=== PATIENT | female | born 1995 | race Caucasian/White ===

== ENCOUNTER → 2019-07-12 | Outpatient (REF) | payer BC ==
[2019-07-15 12:29] LABS: CHLAMYDIA DNA AMPLIFICATION NEGATIVE (NEGATIVE); GC DNA AMPLIFICATION NEGATIVE (NEGATIVE)
== END ==
LOC: M PLALAB 16:32
PROVIDERS: ATTEND Advanced Practice Midwife
DX: Z12.4 Encounter for screening for malignant neoplasm of cervix (principal); Z11.3 Encounter for screening for infections with a predominantly sexual mode of transmission
CPT/HCPCS: 87661; G0123

== ENCOUNTER → 2019-12-09 | Outpatient (REF) | payer BC | LOC: M LAB REF 17:31 | PROVIDERS: ATTEND Physician Assistant | DX: B37.3 Candidiasis of vulva and vagina (principal) ==

== ENCOUNTER → 2021-02-12 | Outpatient (REF) | LOC: M LABSMTC 09:36 | PROVIDERS: ATTEND Pediatrics | DX: Z11.52 Encounter for screening for COVID-19 (principal) ==

== ENCOUNTER → 2021-05-04 | Outpatient (CLI) | payer SELFPAY | LOC: M PLALAB 10:12 | PROVIDERS: ATTEND Advanced Practice Midwife | DX: O20.0 Threatened abortion (principal); Z3A.00 Weeks of gestation of pregnancy not specified ==

== ENCOUNTER → 2021-08-26 | Outpatient (CLI) | payer OTHER ==
[2021-08-26 15:37] LABS: HEMATOCRIT 37.9 % (36.0-47.0); HEMOGLOBIN 13.1 g/dl (12.0-15.5); MEAN CORPUSCULAR HGB CONC 34.6 g/dl (32.0-36.5); MEAN CORPUSCULAR VOLUME 89.6 fl (80.0-96.0); PLATELET COUNT, AUTOMATED 216 10^3/uL (150-450); RED BLOOD COUNT 4.23 10^6/uL (4.00-5.40); WHITE BLOOD COUNT 7.7 10^3/uL (4.0-10.0)
[2021-08-26 16:58] LABS: HIV 1&2 SCREEN CENTAUR NEGATIVE (NEGATIVE)
[2021-08-26 17:22] LABS: GC DNA AMPLIFICATION NEGATIVE (NEGATIVE)
== END ==
LOC: M PLALAB 13:54
PROVIDERS: ATTEND Advanced Practice Midwife
DX: I10 Essential (primary) hypertension (principal)

== ENCOUNTER 2021-10-04 16:48 | Emergency (ER) | payer OTHER ==
[~2021-10-04] VITALS: Ht 167.6 cm; Wt 87.4 kg
[2021-10-04] MEDS ORDERED: LABE100T4 (17:12)
[2021-10-04 20:38] LABS: BASO % 0.4 % (0.0-1.0); EOS # 0.1 10^3/uL (0.0-0.5); HEMATOCRIT 36.8 % (36.0-47.0); HEMOGLOBIN 13.1 g/dl (12.0-15.5); LYMPH # 2.3 10^3/uL (1.5-5.0); LYMPH % 21.9 % (24.0-44.0); MEAN CORPUSCULAR HEMOGLOBIN 30.8 pg (27.0-33.0); MEAN CORPUSCULAR HGB CONC 35.6 g/dl (32.0-36.5); MEAN CORPUSCULAR VOLUME 86.6 fl (80.0-96.0); MONO # 0.5 10^3/uL (0.0-0.8); MONO % 4.8 % (2.0-8.0); NEUTROPHILS # 7.5 10^3/uL (1.5-8.5); NEUTROPHILS % 71.3 % (36.0-66.0); PLATELET COUNT, AUTOMATED 208 10^3/uL (150-450); RED BLOOD COUNT 4.25 10^6/uL (4.00-5.40); WHITE BLOOD COUNT 10.5 10^3/uL (4.0-10.0)
[2021-10-04 20:42] LABS: AMORPHOUS SEDIMENT SMALL (NEGATIVE); APPEARANCE, URINE HAZY (CLEAR); BACTERIA, URINE AUTO 1+ (NEGATIVE); BILIRUBIN, URINE AUTO NEGATIVE (NEGATIVE); BLOOD, URINE BLOOD NEGATIVE (NEGATIVE); COLOR, URINE YELLOW (YELLOW); GLUCOSE, URINE (UA) AUTO NEGATIVE (NEGATIVE); KETONE, URINE AUTO TRACE mg/dL (NEGATIVE); LEUKOCYTE ESTERASE, URINE AUTO NEGATIVE (NEGATIVE); NITRITE, URINE AUTO NEGATIVE (NEGATIVE); PROTEIN, URINE AUTO NEGATIVE (NEGATIVE); RBC, URINE AUTO 1 /HPF (0-3); SPECIFIC GRAVITY URINE AUTO 1.012 (1.002-1.035); SQUAMOUS EPITHELIAL CELL UR AU 2 /HPF (0-6); UROBILINOGEN, URINE AUTO 0.2 mg/dL (0.0-2.0); WBC, URINE AUTO 2 /HPF (0-3)
[2021-10-04 21:09] LABS: ALBUMIN 3.5 GM/DL (3.2-5.2); ALT/SGPT 19 U/L (12-78); BILIRUBIN,DIRECT < 0.1 MG/DL (0.0-0.2); BILIRUBIN,TOTAL 0.4 MG/DL (0.2-1.0); BLOOD UREA NITROGEN 8 MG/DL (7-18); CALCIUM LEVEL 8.8 MG/DL (8.5-10.1); CARBON DIOXIDE LEVEL 24 MEQ/L (21-32); CHLORIDE LEVEL 109 MEQ/L (98-107); CREATININE FOR GFR 0.56 MG/DL (0.55-1.30); GLOMERULAR FILTRATION RATE > 60.0 (>60); GLUCOSE, FASTING 75 MG/DL (70-100); POTASSIUM SERUM 3.9 MEQ/L (3.5-5.1); SODIUM LEVEL 139 MEQ/L (136-145); TOTAL PROTEIN 7.2 GM/DL (6.4-8.2)
[2021-10-04 21:58] VITALS: BP 142/78
[2021-10-04] MEDS ORDERED: LABETALOL 100MG TAB PO ONE (22:05)
[2021-10-04] MEDS ORDERED: LABE200T3 PO (22:08)
[2021-10-04 22:21] VITALS: BP 142/78
[2021-10-04 22:43] LABS: CREATININE,RANDOM URINE 84.3 MG/DL; TOTAL PROTEIN,RANDOM URINE 14.1 MG/DL (0.0-12.0)
== END 2021-10-04 22:23 | disposition home or self-care (01) ==
LOC: M ED 16:48
DX: O10.012 Pre-existing essential hypertension complicating pregnancy, second trimester (principal); Z3A.13 13 weeks gestation of pregnancy; Z88.0 Allergy status to penicillin; Z79.899 Other long term (current) drug therapy

== ENCOUNTER → 2021-11-19 | Outpatient (CLI) | payer OTHER ==
[~2021-11-19] MED LIST: LABE100T4; LABE200T3 PO
== END ==
LOC: M WHC 12:53
PROVIDERS: ATTEND Obstetrics & Gynecology
DX: O10.912 Unspecified pre-existing hypertension complicating pregnancy, second trimester (principal); Z3A.20 20 weeks gestation of pregnancy

== ENCOUNTER → 2021-11-30 | Outpatient (CLI) | payer OTHER | LOC: M WHC 08:07 | PROVIDERS: ATTEND Specialist | DX: Z53.9 Procedure and treatment not carried out, unspecified reason (principal) ==

== ENCOUNTER → 2021-12-16 | Outpatient (CLI) | payer OTHER | LOC: M WHC 14:31 | PROVIDERS: ATTEND Specialist | DX: Z34.02 Encounter for supervision of normal first pregnancy, second trimester (principal) ==

== ENCOUNTER 2021-12-21 11:25 | Outpatient (CLI) | payer OTHER ==
[~2021-12-21] VITALS: Ht 167.6 cm; Wt 89.2 kg
[2021-12-21] MEDS: ASPIRIN 81MG ENTERIC TABLET PO SCH (09:00)
[2021-12-21] MEDS: PRENATAL VITAMINS CHEWABLE TABLET PO SCH (09:00)
[2021-12-21 11:41] VITALS: BP 125/89
[2021-12-21 11:47] VITALS: BP 119/81
[2021-12-21 12:42] LABS: HEMATOCRIT 29.5 % (36.0-47.0); HEMOGLOBIN 10.2 g/dl (12.0-15.5); MEAN CORPUSCULAR HEMOGLOBIN 31.5 pg (27.0-33.0); MEAN CORPUSCULAR HGB CONC 34.6 g/dl (32.0-36.5); PLATELET COUNT, AUTOMATED 205 10^3/uL (150-450); RED BLOOD COUNT 3.24 10^6/uL (4.00-5.40); WHITE BLOOD COUNT 10.6 10^3/uL (4.0-10.0)
[2021-12-21 12:53] LABS: TOTAL PROTEIN,RANDOM URINE 7.8 MG/DL (0.0-12.0)
[2021-12-21 13:06] LABS: ALT/SGPT 17 U/L (12-78); BILIRUBIN,TOTAL 0.3 MG/DL (0.2-1.0); CREATININE FOR GFR 0.66 MG/DL (0.55-1.30); GLOMERULAR FILTRATION RATE > 60.0 (>60); LDH LACTATE DEHYDROGENASE 140 U/L (84-246); URIC ACID 4.3 MG/DL (2.6-6.0)
[2021-12-21 14:10] LABS: CREATININE,RANDOM URINE 22.1 MG/DL
[2021-12-21 14:36] VITALS: BP 121/68
[2021-12-21 15:27] VITALS: BP 138/80
[2021-12-21 18:03] VITALS: BP 137/73
[2021-12-21] MEDS: LABETALOL 100MG TAB PO SCH (20:27)
[2021-12-21 22:00] VITALS: BP 119/59
[2021-12-22 02:00] VITALS: BP 110/51
[2021-12-22 06:00] VITALS: BP 118/70
[2021-12-22 07:19] VITALS: BP 118/70
[2021-12-22] MEDS: ASPIRIN 81MG ENTERIC TABLET PO SCH (08:09)
[2021-12-22 08:10] VITALS: BP 125/80
[2021-12-22] MEDS: LABETALOL 100MG TAB PO SCH (08:10)
[2021-12-22] MEDS: PRENATAL VITAMINS CHEWABLE TABLET PO SCH (08:10)
[2021-12-22] MEDS ORDERED: ONDANSETRON 4MG ORAL DISINTEGRATING TAB PO PRN (09:35)
[2021-12-22 10:00] VITALS: BP 115/64
[2021-12-22 11:35] VITALS: BP 125/76
== END 2021-12-22 14:15 | disposition home or self-care (01) ==
LOC: M LDO 11:25 → M OBS 15:15 → M LDO 12-22 14:15
PROVIDERS: ATTEND Obstetrics & Gynecology
DX: O10.912 Unspecified pre-existing hypertension complicating pregnancy, second trimester (principal); Z3A.24 24 weeks gestation of pregnancy
CPT/HCPCS: 36415; 59025; 82247; 82565; 82570; 83615; 84156; 84450; 84460; 84550; 85027; G0463

== ENCOUNTER → 2021-12-23 | Outpatient (REF) | payer OTHER ==
[2021-12-23 14:10] LABS: TOTAL PROTEIN 24 HOUR URINE 296.1 MG/24HR (50-150); URINE TOTAL PROTEIN 12.6 MG/DL (0-12)
== END ==
LOC: M SFHCWAGY 12:45
PROVIDERS: ATTEND Advanced Practice Midwife
DX: O14.92 Unspecified pre-eclampsia, second trimester (principal)

== ENCOUNTER → 2021-12-31 | Outpatient (CLI) | payer OTHER ==
[2021-12-31 13:54] LABS: HEMATOCRIT 33.4 % (36.0-47.0); HEMOGLOBIN 11.2 g/dl (12.0-15.5); MEAN CORPUSCULAR HEMOGLOBIN 31.2 pg (27.0-33.0); RED BLOOD COUNT 3.59 10^6/uL (4.00-5.40); WHITE BLOOD COUNT 10.9 10^3/uL (4.0-10.0)
[2021-12-31 13:55] LABS: MEAN CORPUSCULAR HGB CONC 33.5 g/dl (32.0-36.5); PLATELET COUNT, AUTOMATED 216 10^3/uL (150-450)
[2021-12-31 15:20] LABS: GC DNA AMPLIFICATION NEGATIVE (NEGATIVE)
== END ==
LOC: M PLALAB 08:26
PROVIDERS: ATTEND Specialist
DX: Z36.89 Encounter for other specified antenatal screening (principal)

== ENCOUNTER → 2022-01-06 | Outpatient (CLI) | payer OTHER | LOC: M WHC 12:59 | PROVIDERS: ATTEND Advanced Practice Midwife | DX: Z36.2 Encounter for other antenatal screening follow-up (principal); O10.012 Pre-existing essential hypertension complicating pregnancy, second trimester; Z3A.27 27 weeks gestation of pregnancy ==

== ENCOUNTER → 2022-02-10 | Outpatient (CLI) | payer OTHER ==
[~2022-02-10] MED LIST changes: -LABE100T4; +LABE100T6; -LABE200T3 PO; +LABE200T5 PO
== END ==
LOC: M WHC 14:23
PROVIDERS: ATTEND Advanced Practice Midwife
DX: O10.013 Pre-existing essential hypertension complicating pregnancy, third trimester (principal); Z3A.32 32 weeks gestation of pregnancy

== ENCOUNTER → 2022-02-23 | Outpatient (REF) | payer OTHER | LOC: M PLALAB 13:33 | PROVIDERS: ATTEND Advanced Practice Midwife | DX: R10.2 Pelvic and perineal pain (principal); N89.8 Other specified noninflammatory disorders of vagina ==

== ENCOUNTER → 2022-03-09 | Outpatient (REF) | payer OTHER | LOC: M SFHCWAGY 17:52 | PROVIDERS: ATTEND Advanced Practice Midwife | DX: O10.013 Pre-existing essential hypertension complicating pregnancy, third trimester (principal) ==

== ENCOUNTER → 2022-03-10 | Outpatient (CLI) | payer OTHER | LOC: M WHC 14:31 | PROVIDERS: ATTEND Advanced Practice Midwife | DX: O10.013 Pre-existing essential hypertension complicating pregnancy, third trimester (principal); Z3A.39 39 weeks gestation of pregnancy ==

== ENCOUNTER 2022-03-20 07:31 | Inpatient (IN) | payer OTHER ==
[2022-03-20] VITALS (22 sets, daily range): BP systolic 129–182; BP diastolic 67–95
[~2022-03-20] VITALS: Ht 167.6 cm; Wt 96.3 kg
[2022-03-20] MEDS ORDERED: ASPI81CH33 PO (08:04)
[2022-03-20] MEDS ORDERED: PRENTAB9 PO (08:04)
[2022-03-20] MEDS ORDERED: LABE300T55 PO (08:04)
[2022-03-20] MEDS ORDERED: HOME MED LIST COMPLETE! XX SCH (08:05)
[2022-03-20 09:09] LABS: HEMATOCRIT 32.3 % (36.0-47.0); HEMOGLOBIN 10.8 g/dl (12.0-15.5); MEAN CORPUSCULAR HEMOGLOBIN 29.4 pg (27.0-33.0); MEAN CORPUSCULAR HGB CONC 33.4 g/dl (32.0-36.5); PLATELET COUNT, AUTOMATED 234 10^3/uL (150-450); RED BLOOD COUNT 3.67 10^6/uL (4.00-5.40); WHITE BLOOD COUNT 11.9 10^3/uL (4.0-10.0)
[2022-03-20] MEDS: miSOPROStol 50MCG 1/2 TABLET SL SCH ×4 (09:34→22:20)
[2022-03-20] MEDS: LABETALOL 100MG TAB PO SCH (20:54)
[2022-03-21] VITALS (35 sets, daily range): BP systolic 115–155; BP diastolic 62–92
[2022-03-21] MEDS: miSOPROStol 50MCG 1/2 TABLET SL SCH (04:36)
[2022-03-21] MEDS: LABETALOL 100MG TAB PO SCH ×2 (09:00→21:00)
[2022-03-21] MEDS ORDERED: OXYTOCIN DRIP 30 UNITS in IV 1 EA IV SCH (09:40)
[2022-03-21] MEDS ORDERED: BUTORPHANOL 2 MG/ML INJ (J0595) IV ONE (09:40)
[2022-03-21] MEDS ORDERED: PROMETHAZINE 25MG/ML 1ML VIAL IV ONE (09:40)
[2022-03-21] MEDS ORDERED: FLUCONAZOLE 50MG TABLET PO ONE (10:00)
[2022-03-21] MEDS: LR 1,000 ML IV SCH ×2 (10:53→16:26)
[2022-03-22] VITALS (61 sets, daily range): BP systolic 104–167; BP diastolic 55–97
[2022-03-22] MEDS: LR 1,000 ML IV SCH ×4 (01:40→21:14)
[2022-03-22] MEDS ORDERED: EPIDURAL/PCA KEYS XX PRN (06:35)
[2022-03-22] MEDS ORDERED: FENTANYL 2MCG/ML ROPIVACAINE 0.2% IN 0.9% NACL 100ML IVBAG As Ordered ONE (06:38)
[2022-03-22] MEDS: FENTANYL/ROPIVACAINE/NACL BAG 100 ML EPIDURAL SCH ×3 (07:53→22:05)
[2022-03-22] MEDS: LABETALOL 100MG TAB PO SCH ×2 (08:31→21:13)
[2022-03-22] MEDS ORDERED: CALCIUM CARBONATE 500 MG CHEW U/D PO ONE (13:20)
[2022-03-22] MEDS ORDERED: ONDANSETRON 4MG 2ML VIAL IV PRN (16:45)
[2022-03-22 22:33] LABS: HEMATOCRIT 34.6 % (36.0-47.0); HEMOGLOBIN 11.4 g/dl (12.0-15.5); MEAN CORPUSCULAR HEMOGLOBIN 29.3 pg (27.0-33.0); MEAN CORPUSCULAR HGB CONC 32.9 g/dl (32.0-36.5); MEAN CORPUSCULAR VOLUME 88.9 fl (80.0-96.0); PLATELET COUNT, AUTOMATED 217 10^3/uL (150-450); RED BLOOD COUNT 3.89 10^6/uL (4.00-5.40); WHITE BLOOD COUNT 19.1 10^3/uL (4.0-10.0)
[2022-03-23] VITALS (11 sets, daily range): BP systolic 103–157; BP diastolic 55–95
[2022-03-23] MEDS: LR 1,000 ML IV SCH (00:02)
[2022-03-23] MEDS ORDERED: METHYLERGONOVINE MALEATE 0.2 MG/ML VIAL (J2210) IM PRN (01:40)
[2022-03-23] MEDS ORDERED: BICITRA 30ML SOLN UDC PO ONE (01:40)
[2022-03-23] MEDS ORDERED: CLINDAMYCIN 900 MG in IV 1 EA IV ONE (01:40)
[2022-03-23] MEDS ORDERED: CARBOPROST TROMETHAMINE 250 MCG/ML AMP IM PRN (01:40)
[2022-03-23] MEDS ORDERED: TRANEXAMIC ACID INJection 1,000 MG in NS 100 ML IV PRN (01:40)
[2022-03-23] MEDS ORDERED: OXYTOCIN DRIP 30 UNITS in IV 1 EA IV PRN ×4 (01:40)
[2022-03-23] MEDS ORDERED: MORPHINE PRES-FREE INJ 10 MG/10 ML VIAL As Ordered ONE (01:43)
[2022-03-23] MEDS ORDERED: LIDOCAINE PRES-FREE 2% 10ML AMP As Ordered ONE (01:43)
[2022-03-23] MEDS ORDERED: KETOROLAC 60MG 2ML VIAL As Ordered ONE (01:43)
[2022-03-23] MEDS ORDERED: GENTAMICIN 400 MG in D5W 100 ML IV ONE (01:45)
[2022-03-23] MEDS ORDERED: fentaNYL 100 MCG/2 ML INJECTION As Ordered ONE (02:15)
[2022-03-23] MEDS ORDERED: MIDAZOLAM INJ 2MG/2ML VIAL (J2250 PER 1MG) As Ordered ONE (02:15)
[2022-03-23] MEDS ORDERED: OXYTOCIN INJ 10 UNITS/ML VIAL (J2590) As Ordered ONE (02:22)
[2022-03-23] MEDS ORDERED: ONDANSETRON 4MG 2ML VIAL As Ordered ONE (02:22)
[2022-03-23] MEDS ORDERED: KETAMINE HCL 200 MG/20 ML VIAL As Ordered ONE (02:45)
[2022-03-23] MEDS ORDERED: BUPIVACAINE HCL 0.25% 30ML VIAL SC ONE (03:00)
[2022-03-23] MEDS ORDERED: BUPIVACAINE HCL 0.25% 30ML VIAL As Ordered ONE (03:00)
[2022-03-23] MEDS ORDERED: OXYTOCIN DRIP 30 UNITS in IV 1 EA IV SCH (03:15)
[2022-03-23] MEDS ORDERED: ONDANSETRON 4MG 2ML VIAL IV PRN ×2 (03:15→03:25)
[2022-03-23] MEDS ORDERED: SIMETHICONE 80MG CHEW TAB PO PRN (03:15)
[2022-03-23] MEDS ORDERED: DOCUSATE SODIUM 100MG CAPSULE PO PRN (03:15)
[2022-03-23] MEDS ORDERED: oxyCODONE 5MG TAB PO PRN ×3 (03:15→03:25)
[2022-03-23] MEDS ORDERED: METOCLOPRAMIDE INJ 10MG/2ML VIAL (J2765 PER 1) IV PRN ×2 (03:15→03:25)
[2022-03-23] MEDS ORDERED: RHOGAM 300 MCG (1500 IU) INJ (J2790) IM SCH (03:15)
[2022-03-23] MEDS ORDERED: diphenhydrAMINE 50MG/ML VIAL (J1200) IV PRN (03:25)
[2022-03-23] MEDS ORDERED: HYDROMORPHONE HCL 0.5 MG/ 0.5 ML SYRINGE (J1170 PER 1) IV PRN (03:25)
[2022-03-23] MEDS ORDERED: NALOXONE INJ 0.4MG/1ML VIAL (J2310 PER 1MG) IV PRN ×2 (03:25)
[2022-03-23] MEDS ORDERED: **NOTE PATIENT COMMENT** MISC XX SCH (03:25)
[2022-03-23] MEDS: SLF 3 ML SYR IV SCH ×3 (03:25→19:27)
[2022-03-23] MEDS ORDERED: MEPERIDINE INJ 25 MG/ML VIAL (J2175) IV PRN (03:25)
[2022-03-23] MEDS ORDERED: fentaNYL 100 MCG/2 ML INJECTION IV PRN (03:25)
[2022-03-23] MEDS ORDERED: oxyCODONE 5MG TAB As Ordered ONE (04:10)
[2022-03-23] MEDS: LABETALOL 100MG TAB PO SCH ×2 (08:21→21:09)
[2022-03-23] MEDS: KETOROLAC 30 MG/ML 1ML VIAL IV SCH ×3 (08:22→21:09)
[2022-03-23] MEDS: PRENATAL VITAMINS CHEWABLE TABLET PO SCH (08:22)
[2022-03-24 02:15] VITALS: BP 144/86
[2022-03-24] MEDS ORDERED: IBUPROFEN 600MG TAB PO SCH (05:15)
[2022-03-24 06:13] VITALS: BP 140/85
[2022-03-24 07:07] LABS: HEMATOCRIT 29.6 % (36.0-47.0); HEMOGLOBIN 9.6 g/dl (12.0-15.5); MEAN CORPUSCULAR HEMOGLOBIN 29.1 pg (27.0-33.0); MEAN CORPUSCULAR HGB CONC 32.4 g/dl (32.0-36.5); MEAN CORPUSCULAR VOLUME 89.7 fl (80.0-96.0); PLATELET COUNT, AUTOMATED 205 10^3/uL (150-450); WHITE BLOOD COUNT 12.8 10^3/uL (4.0-10.0)
[2022-03-24] MEDS: PRENATAL VITAMINS CHEWABLE TABLET PO SCH (09:55)
[2022-03-24] MEDS: LABETALOL 100MG TAB PO SCH ×2 (09:55→20:29)
[2022-03-24] MEDS: ACETAMINOPHEN 500 MG TAB PO SCH ×2 (09:55→20:30)
[2022-03-24 10:00] VITALS: BP 150/97
[2022-03-24 14:00] VITALS: BP 138/89
[2022-03-24 18:00] VITALS: BP 143/89
[2022-03-24 22:00] VITALS: BP 135/81
[2022-03-25 02:00] VITALS: BP 145/86
[2022-03-25] MEDS: ACETAMINOPHEN 500 MG TAB PO SCH ×2 (02:34→13:01)
[2022-03-25 06:00] VITALS: BP 136/74
[2022-03-25] MEDS ORDERED: MEASLES,MUMPS,RUBELLA VACCINE INJ (MMR-II) (90707) SC.IMMUN ONE (09:00)
[2022-03-25 09:52] VITALS: BP 151/96
[2022-03-25 09:58] VITALS: BP 151/96
[2022-03-25] MEDS: LABETALOL 100MG TAB PO SCH (09:58)
[2022-03-25] MEDS: PRENATAL VITAMINS CHEWABLE TABLET PO SCH (09:58)
[2022-03-25] MEDS ORDERED: IBUP-1022 PO (13:49)
[2022-03-25] MEDS ORDERED: OXYC1TAB23 PO (13:49)
== END 2022-03-25 15:00 | disposition home or self-care (01) | DRG 540 ==
LOC: M LDI 07:31 → M OBS 03-23 05:34
PROVIDERS: ADMIT Specialist; ATTEND Obstetrics & Gynecology
PROC: 3E0P7GC Introduction of Other Therapeutic Substance into Female Reproductive, Via Natural or Artificial Opening (ICD-10-PCS; 2022-03-20)
PROC: 10D00Z1 Extraction of Products of Conception, Low, Open Approach (ICD-10-PCS; principal; 2022-03-23 01:30)
DX: O10.02 Pre-existing essential hypertension complicating childbirth (principal); Z3A.37 37 weeks gestation of pregnancy; O76 Abnormality in fetal heart rate and rhythm complicating labor and delivery; Z37.0 Single live birth

== ENCOUNTER → 2024-01-10 | Outpatient (CLI) | payer OTHER ==
[~2024-01-10] MED LIST changes: +ASPI81CH33 PO; +IBUP-1022 PO; +LABE300T28 PO; +OXYC1TAB23 PO; +PRENTAB9 PO
== END ==
LOC: M EKG 17:02
PROVIDERS: ATTEND Nurse Practitioner
DX: R00.2 Palpitations (principal); I10 Essential (primary) hypertension

== ENCOUNTER → 2024-02-27 | Outpatient (CLI) | payer OTHER | LOC: M PLAIMG 13:32 | PROVIDERS: ATTEND Nurse Practitioner | DX: R00.2 Palpitations (principal) ==

== ENCOUNTER → 2024-03-06 | Outpatient (CLI) | payer OTHER | LOC: M RAD 14:13 | PROVIDERS: ATTEND Nurse Practitioner | DX: Z53.9 Procedure and treatment not carried out, unspecified reason (principal) ==

== ENCOUNTER → 2024-04-16 | Outpatient (CLI) | payer OTHER | LOC: M RAD 08:10 | PROVIDERS: ATTEND Nurse Practitioner | DX: I10 Essential (primary) hypertension (principal) ==